=== PATIENT | male | born 1990 | race African-American/Black ===

== ENCOUNTER 2017-07-17 13:53 | Emergency (ER) | payer MEDICAID ==
[~2017-07-17] VITALS: Ht 175.3 cm; Wt 82.0 kg
[~2017-07-17 13:53] MED LIST: ALBU6.7H2; OTC MEDS
[2017-07-17] MEDS ORDERED: SODIUM CHLORIDE 0.9% 1,000 ML IV ONE (15:19)
[2017-07-17 15:42] LABS: PARTIAL THROMBOPLASTIN TIME 27.1 sec (23.4-31.0); PROTHROMBIN TIME 10.9 sec (9.4-11.6)
[2017-07-17 15:46] LABS: BASOPHILS % 0.8 % (0.0-2.0); EOSINOPHILS % 9.1 % (0.0-5.0); HEMATOCRIT. 45.1 % (42.0-52.0); HEMOGLOBIN. 15.7 g/dL (14.0-18.0); LYMPHOCYTES % 24.8 % (20.0-50.0); MEAN CORPUSCULAR HEMOGLOBIN 30.7 pg (28.0-32.0); MEAN CORPUSCULAR VOLUME 88.1 fL (80.0-94.0); MEAN PLATELET VOLUME 10.9 fl (7.4-10.4); MONOCYTES % 7.2 % (2.0-8.0); NEUTROPHILS % 58.1 % (40.0-76.0); PLATELET 222 x1000/uL (130-400); RED BLOOD CELL COUNT 5.12 mill/uL (4.7-6.1); RED CELL DISTRIBUTION WIDTH 13.4 % (11.6-14.6)
[2017-07-17 15:49] LABS: CARBON DIOXIDE 27 mEq/L (21-32); CHLORIDE 106 mEq/L (98-107)
[2017-07-17 18:40] LABS: CLARITY URINE CLEAR (CLEAR); COLOR URINE YELLOW (YELLOW); GLUCOSE URINE NEGATIVE (NEGATIVE); KETONES URINE NEGATIVE (NEGATIVE); LEUKOCYTE ESTERASE URINE NEGATIVE (NEGATIVE); NITRITE URINE NEGATIVE (NEGATIVE); OCCULT BLOOD URINE NEGATIVE (NEGATIVE); PH URINE 6.5 (4.5-8.0); PROTEIN URINE NEGATIVE (NEGATIVE); UROBILINOGEN URINE 0.2 E.U./dL (0.2-1.0)
[2017-07-17 19:55] VITALS: BP 131/97
== END 2017-07-17 22:13 | disposition home or self-care (01) ==
LOC: ER 13:53
DX: K82.4 Cholesterolosis of gallbladder (principal); R10.9 Unspecified abdominal pain; K57.30 Diverticulosis of large intestine without perforation or abscess without bleeding
CPT/HCPCS: 36415; 74176; 76705; 80053; 81003; 83690; 85025; 85610; 85730; 96360; 99285; J7030; Z7610

== ENCOUNTER 2017-10-30 20:20 | Emergency (ER) | payer MEDICAID ==
[~2017-10-30] VITALS: Ht 175.3 cm; Wt 79.0 kg
[~2017-10-30 20:20] MED LIST changes: -ALBU6.7H2; +ALBU6.7H3
[2017-10-30] MEDS ORDERED: ALBUTEROL (0.083%) 2.5MG/3ML NEB HHN STA (23:53)
[2017-10-30] MEDS ORDERED: PREDNISONE 20MG TABLET PO STA (23:53)
[2017-10-30] MEDS ORDERED: IPRATROPIUM BROMIDE (0.02%) 0.5MG/2.5ML NEB HHN STA (23:53)
[2017-10-31 00:30] LABS: BASOPHILS % 0.4 % (0.0-2.0); EOSINOPHILS % 11.5 % (0.0-5.0); HEMATOCRIT. 45.9 % (42.0-52.0); HEMOGLOBIN. 15.8 g/dL (14.0-18.0); LYMPHOCYTES % 29.6 % (20.0-50.0); MEAN CORPUSCULAR HEMOGLOBIN 30.2 pg (28.0-32.0); MEAN CORPUSCULAR VOLUME 87.7 fL (80.0-94.0); MEAN PLATELET VOLUME 10.8 fl (7.4-10.4); MONOCYTES % 6.2 % (2.0-8.0); NEUTROPHILS % 52.3 % (40.0-76.0); PLATELET 218 x1000/uL (130-400); RED BLOOD CELL COUNT 5.23 mill/uL (4.7-6.1); RED CELL DISTRIBUTION WIDTH 13.3 % (11.6-14.6)
[2017-10-31 00:38] LABS: CHLORIDE 103 mEq/L (98-107); TROPONIN I < 0.02 ng/mL (0.00-0.04)
[2017-10-31 01:08] VITALS: BP 126/85
== END 2017-10-31 01:10 | disposition home or self-care (01) ==
LOC: ER 20:53
DX: J45.901 Unspecified asthma with (acute) exacerbation (principal); M25.512 Pain in left shoulder
CPT/HCPCS: 36415; 71045; 80053; 84484; 85025; 93005; 94640; 99285; J7512; J7611; 94664

== ENCOUNTER 2018-04-15 10:16 | Emergency (ER) | payer MEDICAID ==
[~2018-04-15] VITALS: Ht 175.3 cm; Wt 76.0 kg
[~2018-04-15 10:16] MED LIST changes: -ALBU6.7H3; +ALBU6.7H9
[2018-04-15 11:55] LABS: BASOPHILS % 0.5 % (0.0-2.0); EOSINOPHILS % 3.5 % (0.0-5.0); HEMOGLOBIN. 15.5 g/dL (14.0-18.0); LYMPHOCYTES % 26.2 % (20.0-50.0); MEAN CORPUSCULAR VOLUME 88.8 fL (80.0-94.0); MEAN PLATELET VOLUME 11.1 fl (7.4-10.4); MONOCYTES % 8.9 % (2.0-8.0); NEUTROPHILS % 60.9 % (40.0-76.0); PLATELET 198 x1000/uL (130-400); RED BLOOD CELL COUNT 5.18 mill/uL (4.7-6.1); RED CELL DISTRIBUTION WIDTH 13.9 % (11.6-14.6)
[2018-04-15 12:00] LABS: PROTHROMBIN TIME 10.5 sec (9.4-11.6)
[2018-04-15 13:29] LABS: CHLORIDE 105 mEq/L (98-107)
[2018-04-15 15:14] VITALS: BP 125/73
== END 2018-04-15 15:18 | disposition home or self-care (01) ==
LOC: ER 10:16
DX: R51 Headache (principal); R20.2 Paresthesia of skin; J45.909 Unspecified asthma, uncomplicated
CPT/HCPCS: 36415; 70450; 71045; 80053; 83880; 84484; 85025; 85610; 93005; 99285; Z7610

== ENCOUNTER 2019-05-27 17:27 | Emergency (ER) | payer MEDICAID ==
[~2019-05-27] VITALS: Ht 175.3 cm; Wt 73.0 kg
[2019-05-27] MEDS ORDERED: ALBUTEROL (0.083%) 2.5MG/3ML NEB HHN STA (20:31)
[2019-05-27] MEDS ORDERED: PREDNISONE 20MG TABLET PO STA (20:31)
[2019-05-27] MEDS ORDERED: IPRATROPIUM BROMIDE (0.02%) 0.5MG/2.5ML NEB HHN STA (20:31)
[2019-05-27] MEDS ORDERED: ALBUTEROL (0.5%) 2.5MG/0.5ML NEB HHN ONE (20:44)
[2019-05-27] MEDS ORDERED: IPRATROPIUM/ALBUTEROL 0.5-3(2.5)MG/3ML NEB ONE (20:44)
[2019-05-27 21:18] VITALS: BP 137/92
== END 2019-05-27 21:20 | disposition home or self-care (01) ==
LOC: ER 18:31
DX: J45.901 Unspecified asthma with (acute) exacerbation (principal); R07.89 Other chest pain; R51 Headache
CPT/HCPCS: 93005; 94640; 99283; J7512; J7611; J7620; Z7610

== ENCOUNTER 2020-04-16 12:14 | Emergency (ER) | payer MEDICAID ==
[~2020-04-16] VITALS: Ht 175.3 cm; Wt 73.0 kg
[2020-04-16] MEDS ORDERED: IBUPROFEN 600MG TABLET PO STA (14:10)
[2020-04-16] MEDS ORDERED: ONDANSETRON 4MG ODT PO ONE (14:15)
[2020-04-16 15:27] LABS: BASOPHILS % 0.8 % (0.0-2.0); EOSINOPHILS % 7.8 % (0.0-5.0); HEMATOCRIT. 43.7 % (42.0-52.0); LYMPHOCYTES % 19.4 % (20.0-50.0); MEAN CORPUSCULAR HEMOGLOBIN 30.8 pg (28.0-32.0); MEAN PLATELET VOLUME 11.3 fl (7.4-10.4); MONOCYTES % 5.5 % (2.0-8.0); NEUTROPHILS % 66.5 % (40.0-76.0); PLATELET 196 x1000/uL (130-400); RED BLOOD CELL COUNT 4.85 mill/uL (4.7-6.1)
[2020-04-16 15:34] LABS: CHLORIDE 104 mEq/L (98-107)
[2020-04-16 17:00] VITALS: BP 121/88
== END 2020-04-16 17:10 | disposition home or self-care (01) ==
LOC: ER 12:14
DX: K82.4 Cholesterolosis of gallbladder (principal); J45.909 Unspecified asthma, uncomplicated; Z76.0 Encounter for issue of repeat prescription
CPT/HCPCS: 36415; 76705; 80053; 83690; 85025; 93005; 99285; Q0162

== ENCOUNTER 2020-06-07 10:22 | Emergency (ER) | payer MEDICAID ==
[~2020-06-07] VITALS: Ht 175.3 cm; Wt 75.0 kg
[2020-06-07 10:25] VITALS: BP 132/82
== END 2020-06-07 11:29 | disposition home or self-care (01) ==
LOC: ER 10:22
DX: U07.1 COVID-19 (principal); J45.909 Unspecified asthma, uncomplicated
CPT/HCPCS: 87635; 99283

== ENCOUNTER 2020-07-13 11:40 | Emergency (ER) | payer MEDICAID ==
[~2020-07-13] VITALS: Ht 180.3 cm; Wt 80.0 kg
[2020-07-13] MEDS ORDERED: DIPHENHYDRAMINE 25MG CAPSULE PO ONE (12:30)
[2020-07-13] MEDS ORDERED: FAMOTIDINE 20MG TABLET PO ONE (13:00)
[2020-07-13] MEDS ORDERED: PREDNISONE 20MG TABLET PO ONE (13:00)
[2020-07-13 13:25] VITALS: BP 139/92
== END 2020-07-13 13:26 | disposition home or self-care (01) ==
LOC: ER 11:40
DX: R21 Rash and other nonspecific skin eruption (principal); J45.909 Unspecified asthma, uncomplicated; F17.200 Nicotine dependence, unspecified, uncomplicated
CPT/HCPCS: 99284; J7512; Q0163

== ENCOUNTER 2021-06-10 18:29 | Emergency (ER) | payer MEDICAID ==
[~2021-06-10] VITALS: Ht 175.3 cm; Wt 69.0 kg
[2021-06-10] MEDS ORDERED: ALPRAZOLAM 0.25 MG TABLET PO ONE (19:00)
[2021-06-10] MEDS ORDERED: ONDANSETRON 4MG ODT PO ONE (19:00)
[2021-06-10] MEDS ORDERED: ONDA4TAB11 PO (20:22)
[2021-06-10 20:25] VITALS: BP 125/86
== END 2021-06-10 20:36 | disposition home or self-care (01) ==
LOC: ER 18:29
DX: R10.13 Epigastric pain (principal); F41.9 Anxiety disorder, unspecified; J45.909 Unspecified asthma, uncomplicated
CPT/HCPCS: 93005; 99283; Q0162